=== PATIENT | female | born 1975 | race Caucasian/White ===

== ENCOUNTER 2016-12-20 19:45 | Emergency (ER) | payer OTHER ==
[~2016-12-20] VITALS: Ht 157.5 cm; Wt 73.0 kg
[2016-12-20 19:52] VITALS: Ht 157.5 cm; Wt 73.0 kg
[2016-12-20] MEDS ORDERED: LABETALOL 100 MG TAB PO ONE (22:30)
[2016-12-21 00:10] VITALS: BP 140/77; PULSE 79; RESP 18; TEMP 98.6
[2016-12-21] MEDS ORDERED: HYDR-3670 PO (00:17)
--- NOTE | 2016-12-21 02:40 | ERD ---
ER Documentation Chief Complaint Date/Time DATE: 12/21/16 TIME: 02:31 Chief Complaint hypertension today, denies symptoms HPI This patient is a 41-year-old female who is currently 10 weeks and is Ab1, LMP of October 04, 2016 presenting to the emergency department after being sent here by her clinic. Her [employer] physician is Dr. Cora Solano. The patient is asymptomatic currently. She has no headache, dizziness, hematuria, or other symptoms. She does have a past medical history of essential hypertension and hypertension during . She has taken labetalol in the past for her hypertension during . The patient denies other alleviating or exacerbating factors or symptoms at this time. ROS All systems reviewed and are negative except as per history of present illness. Medications Home Meds Active Scripts Hydralazine Hcl* (Hydralazine Hcl*) 10 Mg Tablet, 10 MG PO Q6, #10 TAB Prov:DUGLAS SONI PA-C 12/21/16 Allergies Allergies: Coded Allergies: No Known Allergy (Unverified , 12/20/16) PMhx/Soc Medical and Surgical Hx: pt denies Medical Hx, pt denies Surgical Hx Hx Alcohol Use: No Hx Substance Use: No Hx Tobacco Use: No Smoking Status: Never smoker FmHx Noncontributory for chief complaint Physical Exam Vitals Vital Signs Date Time Temp Pulse Resp B/P Pulse Ox O2 Delivery O2 Flow Rate FiO2 12/21/16 00:10 98.6 79 18 140/77 100 Room Air 12/20/16 22:10 98.3 80 20 190/97 100 Room Air 12/20/16 19:52 98.3 81 20 169/98 97 Physical Exam Const: Nontoxic, well-appearing female in no acute distress. Head: Atraumatic Eyes: Normal Conjunctiva ENT: Normal External Ears, Nose and Mouth. Neck: Full range of motion..~ No meningismus. Resp: Clear to auscultation bilaterally Cardio: Regular rate and rhythm, no murmurs Abd: Gravid abdomen, soft, non tender, non distended. Normal bowel sounds Skin: No petechiae or rashes Back: No midline or flank tenderness Ext: No cyanosis, or edema Neur: Awake and alert Psych: Normal Mood and Affect Results 24 hrs Current Medications Medications (Trade) Dose Ordered Sig/Bin Route PRN Reason Start Time Stop Time Status Last Admin Dose Admin Labetalol HCl (Normodyne) 100 mg ONCE ONCE PO 12/20/16 22:30 12/20/16 22:31 DC 12/20/16 22:36 Procedures/MDM 41-year-old female presenting to the emergency department after being sent here by her [employer] [facility] clinic. The patient had no physical examination findings consistent of hypertension emergency. She was asymptomatic throughout her ED course. Her blood pressure lowered to 140/70 after 100 mg p.o. labetalol in the department. I put an initial call out to her [employer] physician, Dr. Cora Solano, but was unsuccessful in speaking to her myself. I spoke with supervising physician Dr. Duglas Buckner, who recommended prescribing hydralazine and discharging the patient home with very close follow-up with her [employer] physician in 24 hours. I placed a repeat call and left a message with her [employer] physician, Dr. Cora Solano, making her aware of the plan, but was again unable to speak to her directly myself. During her ED course the patient showed no signs of hypertensive emergency or end organ damage. She is only 10 weeks and therefore preeclampsia was not a part of the differentials. The patient agreed with the discharge plan and diagnosis. All questions and concerns were addressed. She was hemodynamically stable prior to discharge. Strict ER return precautions were discussed and the patient demonstrated good understanding. Close follow-up with the primary care physician and [employer] physician advised. Dr. Viridiana Tamayo, supervising ED physician was made aware of the overall ED course and she agreed. Dr. Duglas Buckner was made aware of the overall ED course and he agreed. Departure Diagnosis: Primary Impression: Hypertension Condition: Fair Patient Instructions: High Blood Pressure (Hypertension) [facility] Usted se bennett hecho un examen mdico de control que le indica que no est en beto condicin que requiera tratamiento urgente en el Departamento de Emergencia. Un estudio ms profundo y el tratamiento de palacios condicin pueden esperar sin ningn riesgo hasta que usted sea atendida/o en el consultorio de palacios mdico o beto cl mal[place]. Es responsabilidad suya arreglar beto dale para el seguimiento del liberty. MANEJO DE CONDICIONES NO URGENTES EN EL FUTURO 1) Si usted tiene un mdico de atencin primaria: Usted debera llamar a palacios mdico de atencin primaria antes de venir al departamento de emergencia. Despus de las horas de consultorio, palacios doctor o palacios asociado/a est disponible por telfono. El mdico o enfermero de jg en el servicio telefnico puede asesorarle por dunia medio para atender el problema, o liberty contrario se puede programar beto dale. 2) Si usted no tiene un mdico de atencin primaria: Llame al mdico o clnica de referencia que aparece abajo purvi las horas de consultorio para hacer beto dale para que le vean. CLINICAS: [facility] [phone] [id number] [facility] [place] [phone] [facility] [facility] [phone] [facility] [phone] [facility] [phone] [facility]. [phone] [address] Additional Instructions: No mas mejor en 2-3 thacker, regresar. Mas peor en 24 horas, regresear rapidamente. Ir a doctor primario in 5-7 thacker. Usar instrucciones cuando jose medicamento. DUGLAS SONI PA-C Dec 21, 2016 02:40
== END 2016-12-21 00:18 | disposition home or self-care (01) ==
LOC: FTE 19:45
DX: O10.011 Pre-existing essential hypertension complicating pregnancy, first trimester (principal); Z3A.10 10 weeks gestation of pregnancy
CPT/HCPCS: Z7502; Z7610; 99283